=== PATIENT | male | born 1980 | race Caucasian/White ===

== ENCOUNTER → 2017-03-09 | Outpatient (CLI) | payer OTHER ==
--- NOTE | 2017-03-09 10:40 | CR ---
EXAMINATION: Right clavicle HISTORY: Fracture COMPARISON: 01/26/2017 TECHNIQUE: 2 views FINDINGS/IMPRESSION: There is a stable healing mid to distal right clavicle fracture unchanged in po sition and alignment. The remaining osseous structures and joint spaces appear intact.
== END | disposition home or self-care (01) ==
LOC: MW.CHORTHO 07:50
PROVIDERS: ATTEND Physician Assistant
DX: S42.001D Fracture of unspecified part of right clavicle, subsequent encounter for fracture with routine healing (principal); M89.8X1 Other specified disorders of bone, shoulder
CPT/HCPCS: 73000-26-RT; 73000-RT

== ENCOUNTER → 2017-04-07 | Outpatient (CLI) | payer OTHER ==
--- NOTE | 2017-04-07 20:15 | CR ---
EXAM DATE: 04/07/17 PATIENT'S AGE: 36 Patient: RAMIRO CORONADO Facility: [place], [place] Site . Site : 1980 Study: XRay Shoulder Right [id number]/12/2017 9:28:38 AM Ordering Physician: Robi Osborne Final Report: HISTORY: Right clavicular fracture. Technique: Two views of the right clavicle. Comparison: 03/09/2017. Findings: Fracture involving the junction of the middle and lateral thirds of the right clavicle is again noted with the fracture demonstrating partial healing. There has been no change in alignment. No new fracture. No other bony abnormality. Impression: Partial healing of right clavicular fracture. No change in alignment. Dictated by Jose Meier MD @ Apr 07 2017 10:12AM (Electronic Signature) Report Signed by Proxy. ESTHER
== END ==
LOC: MW.CHORTHO 07:54
PROVIDERS: ATTEND Physician Assistant
DX: M89.8X1 Other specified disorders of bone, shoulder (principal); S42.001D Fracture of unspecified part of right clavicle, subsequent encounter for fracture with routine healing
CPT/HCPCS: 73000-26-RT; 73000-RT

== ENCOUNTER 2018-08-21 23:24 | Emergency (ER) | payer OTHER ==
--- NOTE | 2018-08-21 23:42 | EDM.PDOC ---
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 Past medical history: As per history of present illness and as reviewed below otherwise noncontributory. Surgical history: As per history of present illness and as reviewed below otherwise noncontributory. Social history: No reported history of drug or alcohol abuse. Family history: As per history of present illness and as reviewed below otherwise noncontributory. Physical exam: HEENT: Atraumatic, normocephalic, pupils reactive, negative for conjunctival pallor or scleral icterus, mucous membranes moist, throat clear, neck supple, nontender, trachea midline. Lungs: Clear to auscultation, breath sounds equal bilaterally, chest nontender. Heart: S1S2, regular, negative for clicks, rubs, or JVD. Abdomen: Soft, nondistended, nontender. Negative for masses or hepatosplenomegaly. Negative for costovertebral tenderness. Pelvis: Stable nontender. Genitourinary: Deferred. Rectal: Deferred. Extremities: Patient is noted have 3 wounds in total to his left and right hands 2 on the left one on the right there is no significant bleeding they are relatively small and do resemble what may be small punctures. CMS neuro vascular exams unremarkable Neuro: Awake, alert, oriented. Cranial nerves II through XII unremarkable. Cerebellum unremarkable. Motor and sensory unremarkable throughout. Exam nonfocal. Diagnostics: None Therapeutics: Tetanus was updated were cleansed Impression: #1 animal Bite (cat) right/left hand Definitive disposition and diagnosis as appropriate pending reevaluation and review of above. - Related Data Allergies Allergy/AdvReac Type Severity Reaction Status Date / Time No Known Allergies Allergy Verified 08/21/18 23:35 Home Meds: Home Meds . [No Known Home Meds] 09/27/14 [History] Past Medical History - Past Health History Medical/Surgical History: Denies Medical/Surgical History ED ROS GENERAL - Review of Systems Review Of Systems: ROS reveals no pertinent complaints other than HPI. ED EXAM, ANIMAL BITE - Physical Exam Exam: See Below Departure - Departure Time of Disposition: 23:41 Disposition: Home, Self-Care 01 Condition: Good Clinical Impression: Animal bite of hand - Discharge Information *PRESCRIPTION DRUG MONITORING PROGRAM REVIEWED*: Not Applicable *COPY OF PRESCRIPTION DRUG MONITORING REPORT IN PATIENT STEPH: Not Applicable Referrals: PCP,None [Primary Care Provider] - Additional Instructions: The following information is given to patients seen in the emergency department who are being discharged to home. This information is to outline your options for follow-up care. We provide all patients seen in our emergency department with a follow-up referral. The need for follow-up, as well as the timing and circumstances, are variable depending upon the specifics of your emergency department visit. If you don't have a primary care physician on staff, we will provide you with a referral. We always advise you to contact your personal physician following an emergency department visit to inform them of the circumstance of the visit and for follow-up with them and/or the need for any referrals to a consulting specialist. The emergency department will also refer you to a specialist when appropriate. This referral assures that you have the opportunity for followup care with a specialist. All of these measure are taken in an effort to provide you with optimal care, which includes your followup. Under all circumstances we always encourage you to contact your private physician who remains a resource for coordinating your care. When calling for followup care, please make the office aware that this follow-up is from your recent emergency room visit. If for any reason you are refused follow-up, please contact the [facility] emergency department at and asked to speak to the emergency department charge nurse. [facility] specialty clinic-Plastics [address] [place] [id number] Follow-up primary medical doctor and/or hand surgeon above as discussed Augmentin is prescribed Motrin/Tylenol as directed return as needed as discussed
[2018-08-21] MEDS ORDERED: Diphtheria,Pertussis(Acell),Tetanus Vaccine 0.5 ML Syringe IM ONE (23:48)
== END 2018-08-22 00:05 | disposition home or self-care (01) ==
LOC: MW.ED 23:24
DX: S61.452A Open bite of left hand, initial encounter (principal); S61.451A Open bite of right hand, initial encounter; Z23 Encounter for immunization; W55.01XA Bitten by cat, initial encounter
CPT/HCPCS: 90471; 90715; 99283-25